=== PATIENT | male | born 1965 | race Caucasian/White ===

== ENCOUNTER 2023-07-18 09:28 | Day surgery (SDC) | payer OTHER ==
[~2023-07-18] VITALS: Ht 175.3 cm; Wt 77.1 kg
[~2023-07-18 09:28] MED LIST: CEFAZOLIN SOD 2 GM in D5W 50 ML IV ONE
[2023-07-18 11:45] VITALS: O2SAT 99
[2023-07-18] MEDS ORDERED: NS IRRIG SOLN 1000 ML IR ONE (14:55)
[2023-07-18] MEDS ORDERED: WATER FOR IRRIGATION,STERILE 1,000 ML IRRIG.SOLN IR ONE (14:55)
[2023-07-18] MEDS ORDERED: METOCLOPRAMIDE HCL 10 MG/2 ML VIAL ONE (14:55)
[2023-07-18] MEDS ORDERED: LIDOCAINE 1% 10 MG/ML, 20 ML MDV ONE (14:55)
[2023-07-18] MEDS ORDERED: NEOSTIGMINE METHYLSULFATE 1 MG/ML, 10 ML VIAL ONE (14:55)
[2023-07-18] MEDS ORDERED: GLYCOPYRROLATE 0.2 MG/ML VIAL ONE (14:55)
[2023-07-18] MEDS ORDERED: KETOROLAC TROMETHAMINE 30 MG VIAL ONE (14:55)
[2023-07-18] MEDS ORDERED: LR 1,000 ML IV.SOLN IV ONE (14:55)
[2023-07-18] MEDS ORDERED: fentaNYL CITRATE/PF 100 MCG/2 ML AMP ONE (14:55)
[2023-07-18] MEDS ORDERED: ROCURONIUM BROMIDE 10 MG/ML (ZEMURON) ONE (14:55)
[2023-07-18] MEDS ORDERED: ONDANSETRON HCL 4 MG/2 ML VIAL ONE (14:55)
[2023-07-18] MEDS ORDERED: BUPIVACAINE /PF 0.25% 30 ML VIAL INJ ONE (14:55)
[2023-07-18] MEDS ORDERED: PROPOFOL 200MG/ 20ML VIAL (DIPRIVAN) IV ONE (14:55)
[2023-07-18] MEDS ORDERED: SUCCINYLCHOLINE CHLORIDE 20 MG/ML(QUELICIN) ONE (14:55)
[2023-07-18] MEDS ORDERED: MIDAZOLAM HCL 5 MG/5 ML VIAL ONE (14:55)
[2023-07-18] MEDS ORDERED: SEVOFLURANE 15 MIN GAS INH ONE (14:55)
[2023-07-18] MEDS ORDERED: HYDROcodone/ACETAMIN 5-325 MG TAB (NORCO/ VICODIN) PO PRN (16:00)
[2023-07-18] MEDS ORDERED: D5/0.45 NS 1,000 ML IV SCH (16:15)
[2023-07-18] MEDS ORDERED: HYDROmorphone 2 MG/ML VIAL IVP PRN (16:15)
[2023-07-18] MEDS ORDERED: HYDROmorphone 1 MG/ML INJ. CARTRIDGE IVP PRN (16:15)
[2023-07-18] MEDS ORDERED: ONDANSETRON HCL 4 MG/2 ML VIAL IVP PRN (16:15)
[2023-07-18] MEDS ORDERED: LR 1,000 ML IV SCH (16:15)
[2023-07-18] MEDS ORDERED: KETOROLAC TROMETHAMINE 30 MG VIAL IVP PRN (16:15)
[2023-07-18 17:46] VITALS: BP_SYST 149; PULSE 61; RESP 18
== END 2023-07-18 17:55 | disposition home or self-care (01) ==
LOC: SDS 09:28 → SMU 09:29 → SDS 17:55
PROVIDERS: ATTEND Colon & Rectal Surgery
DX: R22.31 Localized swelling, mass and lump, right upper limb (principal); D17.21 Benign lipomatous neoplasm of skin and subcutaneous tissue of right arm; E11.59 Type 2 diabetes mellitus with other circulatory complications
CPT/HCPCS: 87081; 23073; 13121; 13122; 88304; J3490 ×2; J0690; J1885; J2001; J2765; J2250; J2405; J2704; J0330; J3010; J7060; J7120; J2710

== ENCOUNTER 2023-07-22 19:24 | Emergency (ER) | payer OTHER ==
[~2023-07-22] VITALS: Ht 175.3 cm; Wt 77.1 kg
[2023-07-22 19:45] VITALS: BP_SYST 140; PULSE 87; RESP 19; TEMP 97.9; O2SAT 99
[2023-07-22 22:06] VITALS: BP_SYST 120; PULSE 75; RESP 20; TEMP 97.9; O2SAT 99
== END 2023-07-22 22:06 | disposition home or self-care (01) ==
LOC: SED 19:24
DX: Z48.817 Encounter for surgical aftercare following surgery on the skin and subcutaneous tissue (principal); Z48.00 Encounter for change or removal of nonsurgical wound dressing; Z79.899 Other long term (current) drug therapy
CPT/HCPCS: 99281